=== PATIENT | male | born 2000 | race Caucasian/White ===

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

== ENCOUNTER 2023-05-17 16:06 | Outpatient (CLI) | payer OTHER, SELFPAY ==
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
--- NOTE | ~2023-05-17 | XR_ITS ---
XR cervical spine 4-5V INDICATION: Cervicalgia TECHNIQUE: 5 views of the cervical spine. FINDINGS: Comparison to 03/24/2020 The cervical spine is visualized to the cervicothoracic junction. There is no prevertebral soft tiss ue swelling, listhesis, or loss of vertebral body height. Intervertebral disc spaces are normal. Th e osseous central canal is patent. No displaced cervical spine fractures are identified. No alterati on of alignment with flexion and extension views. IMPRESSION: 1. No acute osseous abnormality of the cervical spine. Reviewed, dictated and finalized at location B.
== END 2023-05-17 16:07 | disposition home or self-care (01) ==
LOC: ANHIMG 16:07
PROVIDERS: PCP Family Medicine; Visit Provider Physician Assistant
DX: M41.84 Other forms of scoliosis, thoracic region (principal); V89.2XXA Person injured in unspecified motor-vehicle accident, traffic, initial encounter
CPT/HCPCS: 72050; 72072; 72100

== ENCOUNTER 2023-05-27 12:38 | Emergency (ER) | payer OTHER, SELFPAY ==
[2023-05-27 12:46] VITALS: BP 130/95; PULSE 77; RESP 16; TEMP 37; O2SAT 99
--- NOTE | 2023-05-27 12:46 | ED.GENADULT ---
HPI - General Adult General Chief complaint: Dental/Oral Stated complaint: Tooth Ache Time Seen by Provider: 05/27/23 12:47 Source: patient, RN notes reviewed and old records reviewed Mode of arrival: ambulatory Limitations: no limitations History of Present Illness HPI narrative: 22-year-old male to [facility] for complaint right lower molar pain for 3 weeks that has become acutely worse over past 3 days. Patient endorses that he was recently on prednisone for a back injury and believes it was helping mask the dental discomfort. Patient endorsing right ear discomfort times day. Patient reports treating at home with acetaminophen and ibuprofen with some relief. Patient denies fever, cough, nausea, headache, allergies. Patient able to control secretions. Patient able to tolerate fluids by mouth. Related Data Allergies Allergy/AdvReac Type Severity Reaction Status Date / Time No Known Allergies Allergy Verified 05/27/23 12:47 Review of Systems Review of Systems: All systems reviewed & are unremarkable except as noted in HPI and below Constitutional: Constitutional: Reports as per HPI and Denies fever(s) Eyes: Eyes: Reports no additional eye complaints ENT: Reports as per HPI, Reports dental pain ( right lower molar), Reports otalgia ( Right), Denies headache(s), Denies odynophagia, Denies sore throat, Denies throat swelling and Denies tongue swelling Cardiovascular: Cardiovascular: Reports no additional cardiovascular complaints, Denies chest pain and Denies dyspnea Respiratory: Respiratory: Reports no additional respiratory complaints, Denies cough and Denies dyspnea Musculoskeletal: Musculoskeletal: Reports no additional musculoskeletal complaints Neurologic: Reports system reviewed and no additional complaints, except as documented Psychiatric: Psychiatric: Reports no additional psychiatric complaints PMFSH Past Medical History Medical History No significant past medical history Surgical History Surgical History No significant past surgical history Family History Family History Father Hypertension Mother Hypertension Diabetes mellitus Lung cancer Social History Social History Smoking status: Current every day smoker Tobacco type: e-cigarettes/vaping Second hand tobacco smoke exposure: Yes Alcohol intake: never Substance use: never Substance use type: does not use Living arrangements: with family Occupation/Education: occupation Gender identity (if verbalized by the patient): Male Comments At the time of my signature, I reviewed and agree with the nursing past medical, surgical, social, and family history. There is no relevant family history pertinent to the patient complaint. Exam Const: General: cooperative, healthy appearing, comfortable, no acute distress, alert and well nourished Nutritional Appearance: well nourished Orientation/consciousness: patient oriented x3 Limitations: no limitations HENMT: Head: normal to inspection Ears: TM abnormal erythematous on the right and with fluid behind the TM bilateral Face/Nose/Sinus: Normal external nose present, Normal nares present, normal facial exam, No erythema and No edema Face and sinus: normal facial exam, no erythema and no edema Mouth: Yes moist mucous membranes, No drooling, No muffled voice and Yes Abnormal oral and palatal mucosa present erythematous and edematous Teeth and gingiva: fair dentition and gingiva abnormal edematous and tender; without any purulent discharge Throat: posterior oropharynx normal Eyes: General: appearance normal, both eyes and all related structures Neck: Neck: normal visual inspection, full ROM and no meningeal signs Lymphatic: no lymphadenopathy
== END 2023-05-27 13:11 | disposition home or self-care (01) ==
PROVIDERS: Emergency Provider Nurse Practitioner Family; PCP Family Medicine
DX: K04.7 Periapical abscess without sinus (principal); F17.290 Nicotine dependence, other tobacco product, uncomplicated
CPT/HCPCS: 99213; G0463